=== PATIENT | female | born 1965 | race Caucasian/White ===

== ENCOUNTER 2019-06-06 10:15 | Observation (INO) ==
[2019-06-06] MEDS ORDERED: ZOFRAN IV ONE (10:47)
[2019-06-06] MEDS ORDERED: DILAUDID IV ONE (10:47)
[2019-06-06] MEDS ORDERED: ASPIRIN PO ONE (10:54)
[2019-06-06 10:59] LABS: BASO# 0.05 X1000 (0.0-0.2); BASO% 0.6 % (0.0-0.8); EOS# 0.27 X1000 (0.0-0.7); EOS% 3.5 % (0.0-10.0); HEMATOCRIT 43.8 % (37.0-47.0); HEMOGLOBIN 14.3 g/dL (12.0-16.0); IMM GRAN# 0.02 X1000 (0.0-0.04); IMM GRAN% 0.3 % (0.0-0.5); LYMPH# 2.94 X1000 (1.2-3.4); LYMPH% 37.7 % (20.5-51.1); MCH 30.5 PG (27-31); MCHC 32.6 g/dL (33-37); MCV 93.4 FL (81-99); MONO# 0.47 X1000 (0.11-0.59); MPV 9.2 FL (7.4-10.4); NEUT# 4.05 X1000 (1.4-6.5); NEUT% 51.9 % (42.2-75.2); PLT 351 X1000 (130-400); RBC 4.69 XMIL (4.2-5.4); RDW 13.2 % (11.5-14.5)
[2019-06-06 11:04] LABS: INR 0.94; PROTIME 12.7 Seconds (11.0-16.0)
--- NOTE | 2019-06-06 11:21 | Diag Imaging Result Doc PS360 ---
CHEST-1 VIEW - 06/06/2019 INDICATION: cp COMPARISON: None FINDINGS: The lungs are normally expanded and clear. Heart size and mediastinal contours are normal. No pneumothorax or pleural effusion. IMPRESSION: Negative exam. Electronically signed by Liborio Dsouza 06/06/2019 11:18 AM
[2019-06-06 11:23] LABS: AGAP 11; ALB/GLOB RATIO 1.2; ALBUMIN 4.1 g/dL (3.5-5.0); ALKALINE PHOSPHATASE 94 U/L (32-104); BUN 14 mg/dL (8-22); CALCIUM 8.9 mg/dL (8.8-10.2); CHLORIDE 106 mmol/L (98-107); COSMO 278; CREATININE 0.7 mg/dL (0.5-0.9); ESTIMATED GFR > 60; GLUCOSE 93 mg/dL (70-104); GOT 38 U/L (10-30); GPT 28 U/L (10-36); SODIUM 139 mmol/L (136-145); TCO2 22 mmol/L (25-35); TOTAL BILIRUBIN 0.31 mg/dL (0.20-1.00); TOTAL PROTEIN 7.5 g/dL (6.3-8.3)
--- NOTE | 2019-06-06 12:25 | EKG Report ---
Test Performed on : 06/06/2019 10:28:04 AM Test Reason : cp Blood Pressure : / mmHG Vent. Rate : 071 BPM Atrial Rate : 071 BPM P-R Int : 164 ms QRS Dur : 098 ms QT Int : 398 ms P-R-T Axes : 060 024 020 degrees QTc Int : 432 ms Normal sinus rhythm. Normal ECG No previous ECGs available Unconfirmed Result
[2019-06-06 12:46] LABS: POTASSIUM 5.8 mmol/L (3.5-5.1)
--- NOTE | 2019-06-06 14:17 | Diag Imaging Result Doc PS360 ---
CT ANGIOGRM PULMONARY ARTERIES - 06/06/2019 INDICATION: difficulty breathing, left arm swollen TECHNIQUE: Axial CT images were obtained after administering intravenous contrast. Coronal MIP images were generated. COMPARISON: None FINDINGS: There is no pulmonary embolism. Heart and great vessels are normal. The lungs are clear. Upper abdominal images are unremarkable. Bones are intact and well mineralized. IMPRESSION: Negative exam. This exam was performed using automated exposure control, adjustment of mA or kV according to patient size, and/or use of iterative reconstruction technique Electronically signed by Liborio Dsouza 06/06/2019 2:15 PM
[2019-06-06] MEDS ORDERED: TORADOL IV ONE (14:19)
[2019-06-06] MEDS ORDERED: G.I. COCKTAIL PO ONE (15:06)
[2019-06-06] MEDS ORDERED: BENADRYL IV ONE (15:06)
--- NOTE | 2019-06-06 15:15 | PROVIDER DOCUMENTATION ---
This chart was entered by Ann vEans Scribe, acting as scribe for Jose Martin Gilbert MD. HPI-Chest Pain - General Chief Complaint: Chest Pain Stated Complaint: abd pain/vomiting Time Seen by Provider: 06/06/19 10:39 Source: patient Allergies/Adverse Reactions: Patient Allergies Allergy/AdvReac Type Severity Reaction Status Date / Time levofloxacin [From Levaquin] Allergy ANAPHYLAXIS Verified 06/06/19 10:47 Home Medications: Home Medication List Medication Instructions Recorded Confirmed Last Taken Type NK [No Home Medications] 06/06/19 06/06/19 Unknown History - History of Present Illness-CP Nature of Presenting Problem: 53yof presents to ED by EMS cc chest tightness that radiates to right arm and shoulder blade an nausea since this morning. 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 Pt reports she doesn't feel 'great' but she doesn't really feel 'bad' either. Pt has no pertinent medical hx. Pt is a light smoker. Pt is in no acute distress upon exam. Location: reports: central Chest Pain Radiation: reports: arms (right), shoulders (right) Quality of Pain: reports: burning, tightness Severity in ED: mild Onset/Duration: this morning Timing: improving, intermittent Context/Activities at Onset: reports: moderate activity Modifying Factors: worse with: movement Associated Symptoms: reports: back pain, nausea Similar Symptoms Previously?: No Recently Seen Here or By Another Healthcare Provider: No Review of Systems - Adult - REVIEW OF SYSTEMS - ADULT Constitutional: reports: see HPI. denies: chills, fever, fatique Eyes: reports: no symptoms reported Ears, Nose, Mouth & Throat: reports: no symptoms reported Cardiovascular: reports: see HPI, chest pain. denies: palpitations Respiratory: reports: see HPI. denies: shortness of breath Gastrointestinal: reports: see HPI, nausea. denies: diarrhea, vomiting Genitourinary: reports: no symptoms reported Musculoskeletal: reports: no symptoms reported Integumentary: reports: no symptoms reported Neurological: reports: no symptoms reported Psychiatric: reports: no symptoms reported Endocrine: reports: no symptoms reported Hematologic/Lymphatic: reports: no symptoms reported Allergic/Immunologic: reports: no symptoms reported All Other Systems: Reviewed and Negative Past History - Adult - PAST MEDICAL HISTORY-ADULT Review of Records: reports: Nursing Assessment Review, Medications Reviewed, S ocial history reviewed & non-contributory. Major Childhood Illnesses: reports: denies history Cardiovascular: reports: denies history Respiratory: reports: denies history Gastrointestinal: reports: denies history Obstetrical/Gynecological: reports: denies history Genitourinary: reports: denies history Musculoskeletal: reports: denies history Neurological: reports: denies history Endocrine/Immune: reports: denies history Other Conditions: reports: denies history - IMMUNIZATION STATUS Childhood Immunizations: See Nurse Assessment Flu Vaccine: See Nurse Assessment - FAMILY HISTORY Family History: reviewed, not pertinent - SOCIAL HISTORY Smoking: cigarettes, less than 1 pack/day Provider spent 3-5 mins advising pt. on dangers of tobacco.: Discussed manners to quit use, and f/u contacts for add'l counseling. Physical Exam-General - PHYSICAL EXAM-ADULT Initial Vital Signs Reviewed: Yes - CONSTITUTIONAL General Appearance: appears well, alert, no apparent distress. negative: anxious, combative - EYES Eyes: PERRL/EOMI, pink conjunctivae. negative: photophobia - HEAD, EARS, NOSE, MOUTH & THROAT HENMT: normocephalic/atraumatic, moist mucous membranes. negative: angioedema - NECK Neck: non-tender, full range of motion, supple - RESPIRATORY Respiratory: chest non-tender, lungs clear, normal breath sounds. negative: rhonchi, wheezing - CARDIOVASCULAR Cardiovascular: normal peripheral pulses, regular rate, rhythm, no edema. negative: bradycardia, tachycardia - GASTROINTESTINAL (ABDOMEN) Abdominal Exam: normal bowel sounds, non tender, soft. negative: guarding, kimberley ound - LYMPHATIC Lymphatic: no adenopathy - MUSCULOSKELETAL Back Exam: normal inspection, no CVA tenderness, no vertebral tenderness Extremity: normal range of motion, normal inspection, no pedal edema, no calf tenderness, normal capillary refill. negative: deformity - SKIN Integumentary: normal color. 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 negative: anxious, disheveled - HEART Score HEART Score: History: Slightly Suspicious HEART Score: ECG: Normal HEART Score: Age: 45-65 Years HEART Score: Risk Factors for Atherosclerotic Disease: 1 or 2 Risk Factors HEART Score: Troponin: < or = Normal Limit Total HEART Score:: 2 Progress - PLAN OF CARE/RESULTS Progress/Plan/Lab Results: Vital Signs - 8 hr 06/06/19 10:20 06/06/19 10:40 06/06/19 10:45 Temperature 97.8 F Pulse Rate 69 71 75 Respiratory Rate 18 15 16 Blood Pressure 110/84 132/101 O2 Sat by Pulse Oximetry 99 98 99 06/06/19 10:48 06/06/19 11:00 06/06/19 11:03 Temperature Pulse Rate 72 74 63 Respiratory Rate 15 24 15 Blood Pressure 137/99 125/89 O2 Sat by Pulse Oximetry 99 98 99 06/06/19 11:15 06/06/19 11:18 06/06/19 11:30 Temperature Pulse Rate 71 66 56 L Respiratory Rate 22 20 14 Blood Pressure 121/79 O2 Sat by Pulse Oximetry 96 92 L 95 06/06/19 11:33 06/06/19 11:45 06/06/19 11:48 Temperature Pulse Rate 62 68 56 L Respiratory Rate 14 22 11 L Blood Pressure 131/82 122/81 O2 Sat by Pulse Oximetry 97 97 97 06/06/19 12:00 06/06/19 12:03 06/06/19 12:15 Temperature Pulse Rate 59 L 58 L 56 L Respiratory Rate 15 11 L 15 Blood Pressure 124/86 O2 Sat by Pulse Oximetry 99 95 97 06/06/19 12:30 06/06/19 12:33 06/06/19 12:45 Temperature Pulse Rate 67 60 61 Respiratory Rate 16 15 13 Blood Pressure 124/80 O2 Sat by Pulse Oximetry 96 94 L 97 06/06/19 12:48 06/06/19 13:00 06/06/19 13:42 Temperature Pulse Rate 60 63 85 Respiratory Rate 9 L 14 12 Blood Pressure 116/80 O2 Sat by Pulse Oximetry 97 97 100 06/06/19 13:45 06/06/19 13:47 06/06/19 14:00 Temperature Pulse Rate 73 71 73 Respiratory Rate 17 15 17 Blood Pressure 110/86 O2 Sat by Pulse Oximetry 95 94 L 93 L 06/06/19 14:03 06/06/19 14:15 06/06/19 14:18 Temperature Pulse Rate 62 65 66 Respiratory Rate 14 16 18 Blood Pressure 111/79 117/76 O2 Sat by Pulse Oximetry 95 95 95 Laboratory Results - last 24 hr 06/06/19 06/06/19 06/06/19 10:45 10:45 10:45 WBC 7.80 RBC 4.69 Hgb 14.3 Hct 43.8 MCV 93.4 MCH 30.5 MCHC 32.6 L RDW Std Deviation 13.2 Plt Count 351 MPV 9.2 Immature Gran % (Auto) 0.3 Neut % (Auto) 51.9 Lymph % (Auto) 37.7 Carver % (Auto) 6.0 Eos % (Auto) 3.5 Baso % (Auto) 0.6 Immature Gran # (Auto) 0.02 Neut # (Auto) 4.05 Lymph # (Auto) 2.94 Carver # (Auto) 0.47 Eos # (Auto) 0.27 Baso # (Auto) 0.05 PT INR PTT (Actin FS) D-Dimer, Quantitative Sodium 139 Potassium 5.8 H Chloride 106 Carbon Dioxide 22 L Anion Gap 11 BUN 14 Creatinine 0.7 Estimated GFR/1.73 m2 > 60 BUN/Creatinine Ratio 20 Glucose 93 Calculated Osmolality 278 Calcium 8.9 Total Bilirubin 0.31 AST 38 H ALT 28 Alkaline Phosphatase 94 Creatine Kinase Troponin T Ity-H-Jlbrxrofoil Pept 49 Total Protein 7.5 Albumin 4.1 Globulin 3.4 Albumin/Globulin Ratio 1.2 06/06/19 06/06/19 06/06/19 10:45 10:45 10:58 WBC RBC Hgb Hct MCV MCH MCHC RDW Std Deviation Plt Count MPV Immature Gran % (Auto) Neut % (Auto) Lymph % (Auto) Carver % (Auto) Eos % (Auto) Baso % (Auto) Immature Gran # (Auto) Neut # (Auto) Lymph # (Auto) Carver # (Auto) Eos # (Auto) Baso # (Auto) PT 12.7 INR 0.94 PTT (Actin FS) 27.0 D-Dimer, Quantitative < 0.27 Sodium Potassium Chloride Carbon Dioxide Anion Gap BUN Creatinine Estimated GFR/1.73 m2 BUN/Creatinine Ratio Glucose Calculated Osmolality Calcium Total Bilirubin AST ALT Alkaline Phosphatase Creatine Kinase Troponin T < 0.010 Fim-H-Yveqgfrdwzm Pept Total Protein Albumin Globulin Albumin/Globulin Ratio 06/06/19 06/06/19 06/06/19 13:05 13:05 13:05 WBC RBC Hgb Hct MCV MCH MCHC RDW Std Deviation Plt Count MPV Immature Gran % (Auto) Neut % (Auto) Lymph % (Auto) Carver % (Auto) Eos % (Auto) Baso % (Auto) Immature Gran # (Auto) Neut # (Auto) Lymph # (Auto) Carver # (Auto) Eos # (Auto) Baso # (Auto) PT INR PTT (Actin FS) D-Dimer, Quantitative Sodium Potassium 4.2 D Chloride Carbon Dioxide Anion Gap BUN Creatinine Estimated GFR/1.73 m2 BUN/Creatinine Ratio Glucose Calculated Osmolality Calcium Total Bilirubin AST ALT Alkaline Phosphatase Creatine Kinase 103 Troponin T < 0.010 Cnw-D-Zdpddeuaipx Pept Total Protein Albumin Globulin Albumin/Globulin Ratio Orders Category Date Time Status Nursing- Obtain EKG ONCE Care 06/06/19 10:39 Completed CHEST-1 VIEW [RAD] Stat Exams 06/06/19 10:[address] ANGIOGRM PULMONARY ARTERIES [CT] Stat Exams 06/06/19 12:26 Completed CBC WITH ELECTRONIC DIFF [HEME] Stat Lab 06/06/19 10:45 Completed CK PROFILE [SP CHEM] Stat Lab 06/06/19 13:05 Completed COMPREHENSIVE METABOLIC PANEL [CHEM] Stat Lab 06/06/19 10:45 Completed D-DIMER [COAG] Stat Lab 06/06/19 10:58 Completed POTASSIUM [CHEM] Routine Lab 06/06/19 13:05 Completed PRO B-NATRIURETIC PEPTIDE Stat Lab 06/06/19 10:45 Completed PT [PROTIME WITH INR] [COAG] Stat Lab 06/06/19 10:45 Completed PTT [COAG] Stat Lab 06/06/19 10:45 Completed TROPONIN T Stat Lab 06/06/19 10:45 Completed TROPONIN T Stat Lab 06/06/19 13:05 Completed Aspirin Med 06/06/19 10:54 Discontinued 325 mg PO NOW ONE Diphenhydramine [Benadryl] Med 06/06/19 15:06 Discontinued 25 mg IV NOW ONE Hydromorphone [Dilaudid] Med 06/06/19 10:47 Discontinued 0.5 mg IV NOW ONE Ketorolac [Toradol] Med 06/06/19 14:19 Discontinued 15 mg IV NOW ONE Lido/Mclain Alk/Al&mg Hydrox [G.i. Cocktail] Med 06/06/19 15:06 Discontinued 30 ml PO NOW ONE Ondansetron [Zofran] Med 06/06/19 10:47 Discontinued 4 mg IV NOW ONE EKG [EKG] Stat Ther 06/06/19 10:39 Draft EKG [EKG] Stat Ther 06/06/19 13:04 Ordered Result Diagrams: 06/06/19 10:45 06/06/19 13:05 - EKG 1 Time of EKG reading by physician:: 10:28 EKG Read and Signed by:: Jose Martin Gilbert EKG Interpretation (*Must complete 3 of following elements*): Normal Rate: 71 Rhythm: nsr [place]: normal MS Interval: normal - XRAY 1 XRAY: Bilateral XRAY Study: Chest Impression: See EMR Report (IMPRESSION: Negative exam. Electronically signed by Liborio Dsouza 06/06/2019 11:18 AM) - CT/MRI 1 CT Study: other (Pulmonary) Impression: See EMR Report (IMPRESSION: Negative exam. This exam was performed using automated exposure control, adjustment of mA or kV according to patient size, and/or use of iterative reconstruction technique Electronically signed by Liborio Dsouza 06/06/2019 2:15 PM) - CONSULTS/PCP/HOSPITALIST Notification #1 *Consult/PCP/Hospitalist*: Megan/OLIVING MACHINE OPERATOR Time Discussed: 15:13 Consult Disposition: Admit (accepted pt to Dr. Ray) Departure - Departure Date of Disposition Decision: 06/06/19 Time of Disposition Decision: 14:43 DIAGNOSIS: Chest pain Qualifiers: Chest pain type: unspecified Qualified Code(s): R07.9 - Chest pain, unspecified DIAGNOSIS: (Ruled Out): Atypical chest pain Disposition: ADMITTED INPATIENT 09 Certified Medical Emergency: Emergent Condition: Fair Additional Instructions: ED Follow Up Instructions: You have been treated by a care provider in the Emergency Department. These instructions are being provided to you so you can have an understanding of how to care for yourself upon discharge. Upon discharge from the Emergency Department, you are responsible for making arrangements for follow-up care by a physician of your choice. Take all prescribed medications as directed. Return to the Emergency Department immediately for any new or worsening symptoms. You may call the Physician Referral phone number at [phone] to obtain a list of Physicians who are taking new patients. Referrals and Follow-Ups: None,PCP [Primary Care Provider] - Discharge Education: Steps to Quit Smoking, [id number] - Critical Care Note This patient required my direct & personal management of CC.: No Attestation - Physician/ NARINDER Attestation Patient care was provided by Advanced Practice Provider:: No The physician spent face to face time with patient:: Yes Advanced Practice Provider documentation review:: Supervising physician onsite and consulted in the evaluation and care of this patient. The physician did have a face to face encounter with the patient. This chart was documented by the indicated scribe, (Ann Evans, Julianna) and accurately reflects the services I performed and decisions made by me, Jose Martin Gilbert MD, as attested by the provider's signature.
[2019-06-06] MEDS ORDERED: NITROGLYCERIN SL PRN (15:59)
[2019-06-06] MEDS ORDERED: TYLENOL PO PRN (15:59)
[2019-06-06] MEDS ORDERED: ZOFRAN IV PRN (15:59)
--- NOTE | 2019-06-06 17:04 | HISTORY AND PHYSICAL ---
PRIMARY CARE PROVIDER: Vik in [place]. CHIEF COMPLAINT: Heartburn at 6 a.m., then nausea, pain between the shoulder blades and the right arm. HISTORY OF PRESENT ILLNESS: Ms. Jc is a 53-year-old female, whose only past medical history is broken bones and a benign heart murmur. She reported around 6 a.m. this morning she started having some heartburn and some belching with nausea, and then at work, she started having pain between her shoulder blades and into her right arm with some associated dizziness. No shortness of breath. She has had some occasional palpitations, but she has had those for years. She works as an operations intern. They did a 12-lead on her that showed an incomplete right bundle branch block; however, our EKG just shows normal sinus rhythm. She continues to have chest pain in between her shoulder blades that is radiating down to her back. She is actively belching in the room. She had a GI cocktail and Dilaudid. Was ruled out for PE with a pulmonary arteriogram as well as full-dose aspirin. We will admit her overnight into observation status for rule out of chest pain. Set her up for a stress test in the morning. Two sets of cardiac enzymes have been negative. PAST MEDICAL HISTORY: 1. Benign heart murmur. 2. Broken bones secondary to riding horses. PAST SURGICAL HISTORY: None. ALLERGIES: Levaquin, anaphylaxis. HOME MEDICATION: None. SOCIAL HISTORY: She is originally from [place]. 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 She does have a significant other. She is a couple of cigarettes per day smoker. No alcohol or illicit drug use. FAMILY HISTORY: A grandmother who is from an [place] at the age of 54. Dad with esophageal cancer and diabetes. A grandmother with breast cancer. REVIEW OF SYSTEMS: A 12-point review of systems was complete and negative except for those mentioned in HPI. PHYSICAL EXAMINATION: VITAL SIGNS: Temperature is 97.8 degrees, heart rate 66, respirations 18, blood pressure 117/76, O2 is 95% on room air. GENERAL: Ms. Jc is a pleasant 53-year-old female, who is sitting on the stretcher in no acute distress. HEENT: Atraumatic, normocephalic. PERRL. NECK: Supple. Trachea midline. CARDIOVASCULAR: S1, S2 appreciated. No murmurs, gallops, or rubs noted. RESPIRATORY: Lung sounds clear bilaterally. GASTROINTESTINAL: Soft, nontender, nondistended. Positive bowel sounds 4 quadrants. LOWER EXTREMITIES: Negative for edema. Bilateral pedal pulses are palpable. NEUROLOGIC: No focal deficits noted. DIAGNOSTIC DATA: Chest x-ray: Negative exam. EKG: Normal sinus rhythm at 71 beats per minute. Pulmonary arteriogram was negative. LABORATORY DATA: White count 7, hemoglobin 14, hematocrit 43, platelet count 351,000. D-dimer less than 0.27. Sodium 139, initial potassium was 5.8 and she is down to 4.2, BUN 14, creatinine 0.7, blood glucose is 93. Two sets of cardiac enzymes have been negative. ASSESSMENT AND PLAN: 1. Chest pain, rule out. Two sets of cardiac enzymes have been negative. We will continue to trend 1 more. We will set her up for an echocardiogram as well as stress test in the a.m. Continue full-dose aspirin, nitroglycerin for any chest pain. 2. Probable gastroesophageal reflux disease. We will put her on a PPI daily. She is having active belching at this time. 3. Reported benign heart murmur. 4. Broken bones. 5. Hyperkalemia, resolved. Further recommendation to follow physician evaluation and laboratory and diagnostic data. Dictated by MAXIM Gonzalez for Kwame Oakley MD cc: Kwame Oakley MD
--- NOTE | 2019-06-06 17:59 | HISTORY AND PHYSICAL ---
ADDENDUM: Patient seen and examined by me [id number]. All the laboratory, vital signs and images were reviewed. This patient came to the emergency department with a chief complaint of chest pain. At the beginning was stabbing but then she started feeling some kind of pressure, in the emergency department she had a CT angiogram of the chest done that did not show any new or acute abnormality, chest x-ray also within normal limits, 1st set of troponins has been negative x2, upon examination this patient's chest is painful to palpation so probably this is related to costochondritis but since she is female and she is a smoker, we will do a stress test to completely rule out any cardiac problems. Her D-dimer has been negative also. In the morning also she was complaining of some heartburn, she has been placed on omeprazole twice a day. We will continue trending her troponins. We will repeat an EKG in the morning and we will check an echocardiogram as well. I agree with the rest of the nurse practitioner's assessment and plan. cc: Kwame Oakley MD
[2019-06-06] MEDS: PRILOSEC PO SCH (21:24)
[2019-06-07] MEDS ORDERED: NS 1,000 ML IV SCH (00:01)
[2019-06-07] MEDS: PRILOSEC PO SCH (06:18)
[2019-06-07] MEDS ORDERED: PRILOSEC PO SCH (07:00)
--- NOTE | 2019-06-07 07:12 | EKG Report ---
Test Performed on : 06/07/2019 06:34:10 AM Test Reason : cp Blood Pressure : / mmHG Vent. Rate : 058 BPM Atrial Rate : 058 BPM P-R Int : 162 ms QRS Dur : 098 ms QT Int : 438 ms P-R-T Axes : 067 033 025 degrees QTc Int : 429 ms Sinus bradycardia. Otherwise normal ECG When compared with ECG of 06-JUN-2019 10:28, (Unconfirmed) No significant change was found Confirmed by Magdiel Garcia MD ([id number]) on 06/08/2019 3:39:14 PM
[2019-06-07 07:27] LABS: BASO# 0.05 X1000 (0.0-0.2); BASO% 0.8 % (0.0-0.8); EOS# 0.37 X1000 (0.0-0.7); EOS% 6.1 % (0.0-10.0); HEMATOCRIT 41.4 % (37.0-47.0); HEMOGLOBIN 13.6 g/dL (12.0-16.0); LYMPH# 2.46 X1000 (1.2-3.4); LYMPH% 40.3 % (20.5-51.1); MCH 30.7 PG (27-31); MCHC 32.9 g/dL (33-37); MCV 93.5 FL (81-99); MONO# 0.46 X1000 (0.11-0.59); MONO% 7.5 % (1.7-9.3); MPV 9.5 FL (7.4-10.4); NEUT# 2.77 X1000 (1.4-6.5); NEUT% 45.3 % (42.2-75.2); PLT 330 X1000 (130-400); RBC 4.43 XMIL (4.2-5.4); RDW 13.3 % (11.5-14.5); WBC 6.11 X1000 (4.8-10.8)
--- NOTE | 2019-06-07 07:29 | Diag Imaging Result Doc PS360 ---
EXAM: CHEST-PORTABLE INDICATION: Chest Pain TECHNIQUE: One view COMPARISON: 06/06/2019 FINDINGS: The lungs are grossly clear. There is no discrete pleural fluid collection or pneumothorax. The cardiomediastinal silhouette and central vasculature are grossly unremarkable. IMPRESSION: No evidence of acute pathology by plain radiograph. Electronically signed by Mundo Peter 06/07/2019 7:27 AM
[2019-06-07 07:44] LABS: AGAP 10; ALB/GLOB RATIO 1.5; ALBUMIN 3.9 g/dL (3.5-5.0); ALKALINE PHOSPHATASE 82 U/L (32-104); BUN 12 mg/dL (8-22); CALCIUM 8.8 mg/dL (8.8-10.2); CHLORIDE 108 mmol/L (98-107); CHOLESTEROL 197 mg/dL (0-200); COSMO 284; CREATININE 0.7 mg/dL (0.5-0.9); ESTIMATED GFR > 60; GLUCOSE 94 mg/dL (70-104); GOT 20 U/L (10-30); GPT 23 U/L (10-36); HDL 63 mg/dL (45-65); LDL 116 mg/dL; POTASSIUM 4.5 mmol/L (3.5-5.1); SODIUM 143 mmol/L (136-145); TCO2 25 mmol/L (25-35); TOTAL BILIRUBIN 0.44 mg/dL (0.20-1.00); TOTAL PROTEIN 6.5 g/dL (6.3-8.3); TRIGLYCERIDES 91 mg/dL (35-135); VLDL 18 mg/dL
[2019-06-07 08:05] VITALS: BP 100/58
[2019-06-07] MEDS ORDERED: ASPIRIN PO SCH (09:00)
--- NOTE | 2019-06-07 12:19 | ECHO REPORT ---
ORDER DATE: 06/06/2019 INDICATION FOR STUDY: Chest pain. FINDINGS: 1. The right atrium appears mildly enlarged at 4.2 cm. 2. Mild tricuspid regurgitation. RV systolic pressure of 34. 3. Normal RV size and systolic function. 4. Trace pulmonic insufficiency. 5. Normal left atrial size with a volume index of 27. 6. No mitral prolapse. Trace mitral regurgitation. No evidence of mitral stenosis. 7. Normal LV size. End-diastolic dimension of 4.9. Normal wall thicknesses with a posterior and interventricular septal wall thickness of 0.9 cm each. Normal LV systolic function. Estimated EF of 60% with normal wall motion. 8. Aortic valve opens well. It is trileaflet. No evidence of stenosis or insufficiency. 9. Aorta appears normal on visualized segments. 10. No pericardial effusion seen. cc: Eugenio Sharma MD
--- NOTE | 2019-06-07 13:38 | Diag Imaging Result Document ---
PROCEDURE NAME: MYOCARDIAL PERF SCAN, STR/REST - 06/07/2019 INDICATION: Chest pain. PROCEDURES PERFORMED: 1. Jesús protocol stress. 2. One day stress rest myocardial perfusion imaging. PROCEDURE FINDINGS: Jesús Protocol Stress Results: 1. Baseline EKG shows sinus rhythm. 2. Patient exercised for a total of 8 minutes, achieving a peak heart rate of 164 which was 97% of age and sex predicted max. He achieved 10.1 METS and stage 3 of the Jesús protocol. Exercise capacity was 115% of age and sex predicted exercise capacity. 3. Appropriate blood pressure response to exercise. 4. Test was terminated due to fatigue. 5. No anginal complaints occurred during the course of the study. 6. No ischemic related EKG changes or significant arrhythmias occurred. Perfusion Imaging Results: 1. No evidence of abnormal extracardiac uptake. 2. TID ratio 1.04. 3. Perfusion imaging demonstrates a small size, mild intensity, fixed defect in the mid anterior septal. There was no evidence of ischemic changes. 4. Normal ejection fraction of 83%. End-diastolic volume 85, end-systolic volume 15. Normal wall motion is noted. cc: Eugenio Sharma MD
--- NOTE | 2019-06-07 15:31 | DISCHARGE SUMMARY ---
ADMISSION DATE: 06/06/2019 DISCHARGE DATE: 06/07/2019 DISCHARGE DIAGNOSES: 1. Atypical chest pain, acute coronary syndrome has been ruled out. 2. Possible gastroesophageal reflux disease. 3. Costochondritis. 4. Asymptomatic bradycardia, mostly in the high 50s. PROCEDURES PERFORMED: Chest x-ray dated 06/06/2019, impression: Negative exam. Pulmonary arteriogram dated 06/06/2019, impression: Negative exam, no PE. Echocardiogram Doppler dated 06/06/2019, impression: Ejection fraction of 60% with normal left ventricular systolic function and normal wall motion. Normal right ventricular size and systolic function as well. Chest x- ray dated 06/07/2019, impression: No evidence of acute pathology by plain radiograph. A stress tested dated 06/07/2019, no evidence of abnormal extracardiac uptake. Perfusion imaging demonstrates a small size, mild intensity, fixed defect in the mid anterior septum. There was no evidence of ischemic changes, normal ejection fraction of 83% and diastolic volume 85, end systolic volume 15, normal wall motion is noted. HOSPITAL COURSE: A 73-year-old female with a past medical history of benign heart murmur and previous fractures due to riding horses, tobacco use, admitted yesterday, 06/06/2019, apparently since 6:00 a.m. yesterday she started having some heartburn and some belching with nausea and then at work she started having pain between her shoulder blades and into her right arm and some associated dizziness, no shortness of breath. She has had some occasional palpitations but she has had those for years. She works as an title specialist. EKG in the emergency department showed normal sinus rhythm. She continued having chest pain in the epigastric and in the middle of the sternal area, radiated to the right side, and in between the shoulder blades. She received some pain medication. PE has been ruled out with a pulmonary arteriogram. She received a dose of aspirin and she was hospitalized to rule out an acute coronary syndrome. Troponins were negative x3. New EKG in the morning was about the same compared with the previous day, mild bradycardia which is asymptomatic. A stress test did not show any acute abnormality or any ischemic changes. She is feeling better today. She does have some tenderness to palpation at the level of the sternal area and that is also painful with deep inspiration. She seems to be doing good today. I will discharge this patient home. For pain, I have recommended Tylenol and probably this patient also has some mild gastritis that can be treated. I sent the patient with omeprazole. PHYSICAL EXAMINATION: Vital signs: Temperature 98.1, pulse 56, respiratory rate 16, blood pressure 100/58, oxygen saturation 98% on room air. HEENT: Head normocephalic, no trauma. PERRLA. Neck: Supple. No JVD. No masses. Central trachea. Chest: Clear to auscultation. No wheezing or rales. Cardiovascular: RRR. Bradycardia. Mild systolic murmur. Abdomen: Soft, nontender, nondistended. No hepatosplenomegaly. Extremities: No edema, no clubbing. No cyanosis. Neurological: Patient is alert and oriented x3. No focal deficits. LABORATORY: WBC 6.1, hemoglobin 13.6, hematocrit 41.1, platelet count 230,000. Sodium 143, potassium 4.5, chloride 108, bicarbonate 25, BUN 12, creatinine 0.7, glucose 94, calcium 8.8, AST 20, ALT 23, alkaline phosphatase 82. Troponin negative x3. DISCHARGE MEDICATIONS: 1. Acetaminophen 350 mg p.o. q six hours for pain or fever. 2. Omeprazole 20 mg p.o. daily. TIME DISCHARGING THIS PATIENT: 20 minutes. cc: Kwame Oakley MD
== END 2019-06-07 15:15 | disposition home or self-care (01) ==
LOC: SUPCPDRO → EDIPHOLD 10:15 → ED 10:15 → 3N 18:42
PROVIDERS: ATTEND Internal Medicine